=== PATIENT | female | born 1960 ===

== ENCOUNTER 2024-10-14 10:49 | Outpatient (CLI) | payer OTHER, SELFPAY ==
--- NOTE | 2024-10-14 11:30 | NEURO_ITS ---
Impression: # Complains of numbness of hands. Non-diabetic. ? # Mild evolving sensory Carpal Tunnel Syndrome. ? # No ulnar neuropathy. ? # Needle/EMG exam not requested. ? # Clinical correlation recommended. Nerve Conduction Studies Anti Sensory Summary Table ?Stim Site NR Peak (ms) P-T Amp (?V) Site1 Site2 Delta-P (ms) Dist (cm) Heriberto (m/s) Left Median Anti Sensory (2-3nd Digit) Wrist ? 3.9 43.6 Wrist 2-3nd Digit 3.9 14.0 36 Wrist ? 4.3 19.2 Wrist 2-3nd Digit 3.9 14.0 36 Right Median Anti Sensory (2-3nd Digit) Wrist ? 4.2 12.6 Wrist 2-3nd Digit 4.2 14.0 33 Wrist ? 4.6 16.2 Wrist 2-3nd Digit 4.2 14.0 33 Left Radial Anti Sensory (Base 1st Digit) Wrist ? 1.8 36.2 Wrist Base 1st Digit 1.8 0.0 Right Radial Anti Sensory (Base 1st Digit) Wrist ? 2.3 49.7 Wrist Base 1st Digit 2.3 0.0 Left Ulnar Anti Sensory (5th Digit) Wrist ? 2.8 63.8 Wrist 5th Digit 2.8 14.0 50 Right Ulnar Anti Sensory (5th Digit) Wrist ? 2.5 64.2 Wrist 5th Digit 2.5 14.0 56 Motor Summary Table ?Stim Site NR Onset (ms) O-P Amp (mV) Site1 Site2 Delta-0 (ms) Dist (cm) Heriberto (m/s) Left Median Motor (Abd Poll Brev) Wrist ? 3.3 5.3 Elbow Wrist 4.9 28.0 57 Elbow ? 8.2 8.7 Right Median Motor (Abd Poll Brev) Wrist ? 3.4 7.8 Elbow Wrist 5.0 28.0 56 Elbow ? 8.4 7.0 Left Ulnar Motor (Abd Dig Minimi) Wrist ? 2.6 5.6 A Elbow Wrist 4.7 28.0 60 A Elbow ? 7.3 5.1 Right Ulnar Motor (Abd Dig Minimi) Wrist ? 2.4 6.7 A Elbow Wrist 4.9 28.0 57 A Elbow ? 7.3 5.0 F Wave Studies ?NR F-Lat (ms) L-R F-Lat (ms) Left Median (Mrkrs) (Abd Poll Brev) ? 27.93 1.09 Right Median (Mrkrs) (Abd Poll Brev) ? 26.84 1.09 Left Ulnar (Mrkrs) (Abd Dig Min) ? 27.73 0.46 Right Ulnar (Mrkrs) (Abd Dig Min) ? 27.27 0.46 MTDD
--- OUTSIDE RECORDS SUMMARY | 2024-10-14 12:24 | XMS_ITS | Clinical Summary ---
Author Organization [facility] Address [address] [place] [address] Care Team Providers Care Digital Product Manager Name Role Phone Sin Greenwood MD Primary Care Provider [phone] Allergies No known active allergies Medications Multiple Vitamin (MULTIVITAMIN ADULT) Tab Active Ca Phosphate-Cholec alciferol (CALCIUM WITH D3 OR) Active biotin 300 MCG Tab Take 1 tablet (300 mcg total) by mouth daily. Active Active Problems No known active problems Encounters Date Type Department Care Team Description 10/07/2024 12:48 PM [facility] - 10/07/2024 1:19 PM [facility] [place] [address] Nabor Yoo MD COLONOSCOPY 10/07/2024 11:55 AM [facility] Anesthesia Event [facility] [address] [place] [address] Virgilio Sinclair CRNA 10/07/2024 11:06 AM [facility] - 10/07/2024 12:47 PM [facility] Hospital En[place] [address] Nabor Yoo MD Discharge Disposition: Home or Self Care (Routine Discharge) 10/07/2024 Travel 09/23/2024 Travel from Last 3 Months Family History Medical History Relation Comments Lung Cancer Maternal Aunt Relation Status Comments Maternal Aunt Social History Tobacco Use Types Packs/Day Years Used Date Smoking Tobacco: Every Day Cigarettes Smokeless Tobacco: Never Tobacco Cessation:Ready to Q uit: Not Asked; Counseling Given: Not Answered Alcohol Use Standard Drinks/Week Comments Yes 20 (1 standard drink = 0.6 oz pu re alcohol) socially Comments No Sex and Gender Information Value Date Recorded Sex Assigned at Female 10/07/2024 11:05 AM [facility] Legal Sex Female 5:58 PM [facility] Gender Identity Not on file Sexual Orientation Not on file Last Filed Vital Signs Vital Sign Reading Time Taken Comments Blood Pressure 124/82 10/07/2024 12:33 PM [facility] Pulse 88 10/07/2024 12:33 PM [facility] Temperature 36.5 C (97.7 F) 10/07/2024 12:33 PM [facility] Respiratory Rate 16 10/07/2024 12:33 PM [facility] Oxygen Saturation 99% 10/07/2024 12:18 PM [facility] Inhaled Oxygen Concentration - - Weight 54.4 kg (120 lb) 10/07/2024 11:25 AM [facility] Height 162.6 cm (5' 4 ) 10/07/2024 11:25 AM [facility] Body Mass Index 20.6 10/07/2024 11:25 AM [facility] Plan of Treatment Health Maintenance Due Date Last Done Comments Cervical Cancer Screening Pap Smear (Age 30 to 64) Every 3 Years 1960 Annual Physical 1963 Pneumococcal Vaccine: Pediatrics (0 to 5 Years) and At-Risk Patients (6 to 64 Years) (1 of 2 - PCV) 1966 Hepatitis C 1978 DTaP, Tdap and Td Vaccines (1 - Tdap) 1979 Cervical Cancer Screening Pap with HPV Testing (Age 30 to 64) Every 5 Years 1990 Cervical Cancer Screening with HPV 1990 Zoster Vaccines (1 of 2) 2010 COVID-19 Vaccine ( - season) 2024 Influenza Adult (#1) 2024 Mammogram Screening 06/03/2026 06/03/2024, 05/22/2023, 10/27/2021, Additional history exists Colorectal Cancer Screening Colonoscopy (10 Years) 10/07/2034 10/07/2024, 10/07/2024 RSV Immunization or 60+ Years (1 - 1-dose 75+ series) 2035 Meningococcal B Vaccine Aged Out No l onger eligible based on patient's age to complete this topic Meningococcal Vaccine Aged Out No diane wyatt eligible based on patient's age to complete this topic RSV Immunizations Under 20 Months Aged Out No longer eligible based on patient's age to complete this topic Procedures Procedure Name Priority Date/Time Associated Diagnosis Comments COLONOSCOPY DIAGNOSTIC WITH/WITHOUT SPECIMEN BRUSH/WASH 10/07/2024 11:50 AM [facility] SCREENING COLONOSCOPY 10/07/2024 6:37 AM [facility] MG SCREENING W MOOSE ABRAHAN DIGI Routine 06/03/2024 2:58 PM CDT Encounter for screening mammogram for malignant neoplasm of breast from Last 3 Months or Most Recently Relevant to Health Maintenance Results * Colonoscopy (10/07/2024 6:37 AM [facility]) us Nabor Yoo MD GI PROCEDURE ORDERABLES Final Result * MG SCREENING W MOOSE ABRAHAN DIGI (06/03/2024 2:58 PM CDT) Anatomical Region Laterality Modality Breast Bilateral Mammography 06/04/2024 1:07 PM CDT Impressions 06/04/2024 1:08 PM CDT IMPRESSION: No mammographic findings suggestive of malignancy. Recommendation: 1: Routine screening mammogram bilateral in 1 year Assessment: ACR BI-RADS Category 2 - Benign. Ordered By: SIN GREENWOOD Interpreted By: Zafar Gaona MD, 06/04/2024 1:07 PM Narrative 06/04/2024 1:08 PM CDT [address] [place] [id number] Examination: Digital bilateral screening mammogram Clinical history: Asymptomatic routine screening study Comparison: Mammograms 05/22/2023, 10/27/2021, 05/06/2020 Technique: Digital screening mammography of both breasts was performed. Breast tomosynthesis acquisitions were obtained bilaterally. This study was read with the assistance of a computer-aided detection system. Tissue density: The breast tissue is heterogeneously dense, which may obscure small masses. Findings: The dense tissue may obscure some lesions mammographically. Persistent area of stable asymmetric glandular tissue density axillary tail region right breast. No suspicious masses, malignant appearing calcifications, skin thickening or other abnormalities are present. No significant change from the prior exam. us Sin Greenwood MD MAMMO Final Resul t from Last 3 Months or Most Recently Relevant to Health Maintenance Insurance [facility] Care Teams Digital Product Manager Relationship Specialty Start Date End Date Sin Greenwood MD [address] [place] [phone] PCP - General FAMILY PRACTICE 10/13/19
== END 2024-10-14 10:50 | disposition home or self-care (01) ==
PROVIDERS: PCP Family Medicine; Visit Provider Family Medicine
DX: G56.03 Carpal tunnel syndrome, bilateral upper limbs (principal)
CPT/HCPCS: 95911